=== PATIENT | male | born 1990 | race Caucasian/White ===

== ENCOUNTER → 2019-08-05 | Outpatient (CLI) | payer BC ==
[~2019-08-05] MED LIST: INSULIN PUMP NOVOLOG; LVT.05T PO
--- NOTE | 2019-08-05 09:26 | Diagnostic Imaging Report ---
PROCEDURE: US Scrotum. TECHNIQUE: Multiple real-time grayscale images were obtained over the scrotum in various projections bilaterally. INDICATION: Left testicular mass. Right testicle measures 4.3 x 2.0 x 2.6 cm and the left testicle measures 4.1 x 2.2 x 2.9 cm. Both testes demonstrate homogeneous echotexture. No discrete testicular mass is identified. There is blood flow to both testes. Epididymides are unremarkable. No hydrocele is detected. There is no varicocele. IMPRESSION: Unremarkable scrotal ultrasound. No testicular mass or vascular compromise is detected. Dictated by: Dictated on workstation # [id number]
== END ==
LOC: RAD 08:26
PROVIDERS: ATTEND Internal Medicine
DX: N50.9 Disorder of male genital organs, unspecified (principal)
CPT/HCPCS: 76870

== ENCOUNTER → 2019-08-19 | Outpatient (CLI) | payer BC ==
--- NOTE | 2019-08-19 12:15 | Diagnostic Imaging Report ---
PROCEDURE: US Thyroid. TECHNIQUE: Multiple real-time grayscale images were obtained of the thyroid in various projections. INDICATION: Enlarged thyroid gland. COMPARISON: None available FINDINGS: The right lobe of thyroid gland measures 4.9 x 1.3 x 1.4 cm. It maintains a homogeneous echotexture without discrete nodule. The left lobe of thyroid gland measures 4.4 x 1.6 x 1.0 cm. It maintains a homogeneous echotexture without discrete nodule. Isthmus is unremarkable. IMPRESSION: Unremarkable examination. Dictated by: Dictated on workstation # [id number]
== END ==
LOC: RAD 11:06
PROVIDERS: ATTEND Internal Medicine
DX: E04.9 Nontoxic goiter, unspecified (principal)
CPT/HCPCS: 76536

== ENCOUNTER 2020-04-14 09:07 | Emergency (ER) | payer BC ==
[~2020-04-14] VITALS: Ht 180 cm; Wt 81.0 kg
[2020-04-14] MEDS ORDERED: LACTATED RINGERS 1,000 ML IV ONE ×2 (09:38→10:31)
[2020-04-14] MEDS ORDERED: ACETAMINOPHEN 500 MG TAB (TYLENOL) PO PRN (09:45)
[2020-04-14 09:55] LABS: BASOPHILS % (AUTO) 1 % (0-10); EOSINOPHILS # (AUTO) 0.1 10^3/uL (0.0-0.3); EOSINOPHILS % (AUTO) 2 % (0-10); HEMATOCRIT 45 % (40-54); HEMOGLOBIN 15.1 g/dL (13.3-17.7); LYMPHOCYTES # (AUTO) 0.6 10^3/uL (1.0-4.0); LYMPHOCYTES % (AUTO) 8 % (12-44); MEAN CORPUSCULAR HEMOGLOBIN 29 pg (25-34); MEAN CORPUSCULAR HGB CONC 33 g/dL (32-36); MEAN CORPUSCULAR VOLUME 88 fL (80-99); MEAN PLATELET VOLUME 11.1 fL (9.0-12.2); MONOCYTES # (AUTO) 0.9 10^3/uL (0.0-1.0); MONOCYTES % (AUTO) 13 % (0-12); NEUTROPHILS # (AUTO) 5.1 10^3/uL (1.8-7.8); NEUTROPHILS % (AUTO) 76 % (42-75); PLATELET COUNT 141 10^3/uL (130-400); WHITE BLOOD COUNT 6.7 10^3/uL (4.3-11.0)
[2020-04-14 09:59] LABS: ALBUMIN 4.4 GM/DL (3.2-4.5); CHLORIDE 96 MMOL/L (98-107); POTASSIUM 4.9 MMOL/L (3.6-5.0); SODIUM 132 MMOL/L (135-145)
[2020-04-14 10:02] LABS: TOTAL PROTEIN 7.5 GM/DL (6.4-8.2)
[2020-04-14 10:03] LABS: BILIRUBIN,TOTAL 0.6 MG/DL (0.1-1.0); CARBON DIOXIDE 21 MMOL/L (21-32)
[2020-04-14 10:05] LABS: ALKALINE PHOSPHATASE 65 U/L (40-136)
[2020-04-14 10:06] LABS: BUN/CREATININE RATIO 10
[2020-04-14 10:08] LABS: ALANINE AMINOTRANSFERASE 13 U/L (0-55)
[2020-04-14 10:12] LABS: GFR ESTIMATED > 60
[2020-04-14 10:13] LABS: GLUCOSE 456 MG/DL (70-105)
[2020-04-14 10:14] LABS: FIBRIN DEGRADATION PRODUCTS < 0.27 UG/ML (0.00-0.49); PARTIAL THROMBOPLASTIN TIME 28 SEC (24-35); PROTHROMBIN TIME PATIENT 13.1 SEC (12.2-14.7)
--- NOTE | 2020-04-14 10:30 | Diagnostic Imaging Report ---
PATIENT HISTORY: sepsis. TECHNIQUE: Single frontal view of the chest. COMPARISON: None FINDINGS: The lung volumes are normal. No focal consolidation is seen. No large pleural effusion or pneumothorax is seen. The cardiomediastinal silhouette is normal in size and contour. No acute osseous abnormality is seen. IMPRESSION: No acute pulmonary abnormality seen. Dictated by: Dictated on workstation # [id number]
[2020-04-14] MEDS ORDERED: inSUlin (REGULAR) HUMAN 1 UNIT/0.01 ML (CHARGE PER UNIT) IV STA (10:31)
--- NOTE | 2020-04-14 11:13 | ED General ---
General Chief Complaint: Fever-Adult/Adol Stated Complaint: FEVER,SOA,LOSS OF TASTE Nursing Triage Note: ARRIVED VIA AMB TO ROOM 09 WITH COMPLAINTS OF FEVER, MUSCLE ACHES, NO TASTE AND FATIGUE STARTING ON SAT. STATES HE WAS EXPOSED LAST THRUSDAY BY HIS BOSS AND WAS TESTED THEN PER [employer] POLICY. PT IS A DIABETIC AND STATES HE IS WEARING A PUMP. STATES BLOOD SUGARS HAVE BEEN HIGH. Nursing Sepsis Screen: Possible Severe Sepsis Risk Source of Information: Patient Exam Limitations: No Limitations History of Present Illness Date Seen by Provider: Apr 14, 2020 Time Seen by Provider: 09:38 Initial Comments Here with report of loss of taste and overall not feeling well. Also has fevers. Patient is a known diabetic. Did have exposure and test approximately a week ago. The test was negative. Shortly thereafter he started having symptoms and that has progressed to fever today. Notes that his blood sugars have been in the 400s the last couple of days. He does have insulin pump and does do bolus dose based on blood sugars. Despite that his blood sugars have stayed elevated. He still is able to drink and is not vomiting. Main concern today was that he developed fever and has lost taste. He is worried that he has COVID-19. He is also worried about unregulated blood sugar. Timing/Duration: 1 Week, Getting Worse Severity: Moderate Associated Systoms: Cough, Fever/Chills; No Nausea/Vomiting, No Shortness of Air, No Weakness Allergies and Home Medications Allergies Coded Allergies: Penicillins (Verified Adverse Reaction, Mild, 09/25/12) azithromycin (Verified Adverse Reaction, Mild, 09/25/12) codeine (Verified Adverse Reaction, Mild, 09/25/12) Home Medications Levothyroxine Sodium 50 Mcg Tablet, 1 EACH PO DAILY, (Reported) Patient Home Medication List Home Medication List Reviewed: Yes Review of Systems Review of Systems Constitutional: No chills; fever EENTM: see HPI; No nose congestion, No throat pain Respiratory: cough; No short of breath Cardiovascular: no symptoms reported Gastrointestinal: No abdominal pain, No nausea, No vomiting Genitourinary: No dysuria, No pain Musculoskeletal: joint pain, muscle pain Skin: No change in color, No lesions Psychiatric/Neurological: Denies Headache, Denies Weakness All Other Systems Reviewed Negative Unless Noted: Yes Past Vqfidym-Voceef-Tmtqtm Hx Past Med/Social Hx: Reviewed Nursing Past Med/Soc Hx Patient Social History Alcohol Use: Occasionally Uses Recreational Drug Use: No Recent Foreign Travel: No Contact w/Someone Who Travel: No Recent Infectious Disease Expo: No Immunizations Up To Date Tetanus Booster (TDap): Unknown Date of Pneumonia Vaccine: September 28, 2012 Seasonal Allergies Seasonal Allergies: No Past Medical History Surgeries: No Respiratory: No Cardiac: No Neurological: No Reproductive Disorders: No Genitourinary: No Gastrointestinal: No Musculoskeletal: No Endocrine: Yes (DX DM 2004; DX hypothyroid 2005) Diabetes, Insulin dep, Hypothyroidsim Cancer: No Psychosocial: No Integumentary: No Blood Disorders: No Adverse Reaction/Blood Tranf: No Family Medical History Reviewed Nursing Family Hx No Pertinent Family Hx Physical Exam-Suspected Sepsis Physical Exam Vital Signs Vital Signs - First Documented 04/14/20 09:20 Temp 38.6 Pulse 132 Resp 16 B/P (MAP) 131/80 (97) Pulse Ox 96 O2 Delivery Room Air Capillary Refill : Less Than 3 Seconds Blood Pressure Mean: 97 Height, Weight, BMI Height: 6'0.00" Weight: 175lbs. 5.0oz. [id number]; 25.00 BMI Method:Stated General Appearance: No Apparent Distress, WD/WN HEENT: PERRL/EOMI, Pharynx Normal Neck: Non Tender, Supple Respiratory: Lungs Clear, Normal Breath Sounds Cardiovascular: No Murmur, Tachycardia Gastrointestinal: Non Tender, Soft Back: Normal Inspection, No CVA Tenderness, No Vertebral Tenderness Extremity: Normal Range of Motion, Non Tender Neurologic/Psychiatric: Alert, Oriented x3 Skin: normal color, warm/dry Focused Exam Lactate Level 04/14/20 09:30: Lactic Acid Level 1.30 Lactic Acid Level Laboratory Tests Test 04/14/20 09:30 Lactic Acid Level 1.30 MMOL/L (0.50-2.00) Progress/Results/Core Measures Suspected Sepsis Recent Fever Within 48 Hours: Yes Infection Criteria Present: Suspected New Infection New/Unexplained Altered Menta: No Sepsis Screen: Possible Severe Sepsis Risk SIRS Temperature: Pulse: 132 Respiratory Rate: 16 Laboratory Tests 04/14/20 09:30: White Blood Count 6.7 Blood Pressure 131 /80 Mean: 97 04/14/20 09:30: Lactic Acid Level 1.30 Laboratory Tests 04/14/20 09:30: Creatinine 1.30, INR Comment 1.0, Platelet Count 141, Total Bilirubin 0.6 Results/Orders Lab Results Laboratory Tests Test 04/14/20 09:30 04/14/20 12:23 Range/Units White Blood Count 6.7 4.3-11.0 10^3/uL Red Blood Count 5.18 4.30-5.52 10^6/uL Hemoglobin 15.1 13.3-17.7 g/dL Hematocrit 45 40-54 % Mean Corpuscular Volume 88 80-99 fL Mean Corpuscular Hemoglobin 29 25-34 pg Mean Corpuscular Hemoglobin Concent 33 32-36 g/dL Red Cell Distribution Width 11.3 10.0-14.5 % Platelet Count 141 130-400 10^3/uL Mean Platelet Volume 11.1 9.0-12.2 fL Immature Granulocyte % (Auto) 0 % Neutrophils (%) (Auto) 76 H 42-75 % Lymphocytes (%) (Auto) 8 L 12-44 % Monocytes (%) (Auto) 13 H 0-12 % Eosinophils (%) (Auto) 2 0-10 % Basophils (%) (Auto) 1 0-10 % Neutrophils # (Auto) 5.1 1.8-7.8 10^3/uL Lymphocytes # (Auto) 0.6 L 1.0-4.0 10^3/uL Monocytes # (Auto) 0.9 0.0-1.0 10^3/uL Eosinophils # (Auto) 0.1 0.0-0.3 10^3/uL Basophils # (Auto) 0.0 0.0-0.1 10^3/uL Immature Granulocyte # (Auto) 0.0 0.0-0.1 10^3/uL Prothrombin Time 13.1 12.2-14.7 SEC INR Comment 1.0 0.8-1.4 Activated Partial Thromboplast Time 28 24-35 SEC D-Dimer < 0.27 0.00-0.49 UG/ML Sodium Level 132 L 135-145 MMOL/L Potassium Level 4.9 3.6-5.0 MMOL/L Chloride Level 96 L 98-107 MMOL/L Carbon Dioxide Level 21 21-32 MMOL/L Anion Gap 15 H 5-14 MMOL/L Blood Urea Nitrogen 13 7-18 MG/DL Creatinine 1.30 0.60-1.30 MG/DL Estimat Glomerular Filtration Rate > 60 BUN/Creatinine Ratio 10 Glucose Level 456 *H 70-105 MG/DL Lactic Acid Level 1.30 0.50-2.00 MMOL/L Calcium Level 9.0 8.5-10.1 MG/DL Corrected Calcium 8.7 8.5-10.1 MG/DL Total Bilirubin 0.6 0.1-1.0 MG/DL Aspartate Amino Transf (AST/SGOT) 12 5-34 U/L Alanine Aminotransferase (ALT/SGPT) 13 0-55 U/L Alkaline Phosphatase 65 40-136 U/L C-Reactive Protein High Sensitivity 0.28 0.00-0.50 MG/DL Total Protein 7.5 6.4-8.2 GM/DL Albumin 4.4 3.2-4.5 GM/DL Procalcitonin 0.09 <0.10 NG/ML Coronavirus 2019 (BHUPENDRA) Positive H Negative Urine Color YELLOW Urine Clarity CLEAR Urine pH 6.0 5-9 Urine Specific [place] 1.010 L 1.016-1.022 Urine Protein NEGATIVE NEGATIVE Urine Glucose (UA) 3+ H NEGATIVE Urine Ketones 2+ H NEGATIVE Urine Nitrite NEGATIVE NEGATIVE Urine Bilirubin NEGATIVE NEGATIVE Urine Urobilinogen 0.2 < = 1.0 MG/DL Urine Leukocyte Esterase NEGATIVE NEGATIVE Urine RBC (Auto) NEGATIVE NEGATIVE Urine RBC RARE /HPF Urine WBC RARE /HPF Urine Crystals NONE /LPF Urine Bacteria NEGATIVE /HPF Urine Casts NONE /LPF Urine Mucus NEGATIVE /LPF Urine Culture Indicated NO My Orders Orders - MERARI DAWN MD Cbc With Automated Diff (04/14/20 09:35) Comprehensive Metabolic Panel (04/14/20 09:35) Blood Culture (04/14/20 09:35) Sputum Culture (04/14/20:35) Urinalysis (04/14/20 09:35) Urine Culture (04/14/20 09:35) Protime With Inr (04/14/20 09:35) Partial Thromboplastin Time (04/14/20 09:35) Chest 1 View, Ap/Pa Only (04/14/20 09:35) Acetaminophen Tablet (Tylenol Tablet) (04/14/20 09:45) Ed Iv/Invasive Line Start (04/14/20 09:35) Vital Signs Adult Sepsis Patie Q15M (04/14/20 09:35) O2 (04/14/20 09:35) Remove Rings In Anticipation O (04/14/20 09:35) Lactic Acid Analyzer (04/14/20 09:35) Fibrin Degradation Products (04/14/20 09:35) Procalcitonin (Pct) (04/14/20 09:35) Hs C Reactive Protein (04/14/20 09:35) Covid 19 Inhouse Test (04/14/20 09:35) Lactated Ringers (Lr 1000 Ml Iv Solution (04/14/20 09:38) Lactated Ringers (Lr 1000 Ml Iv Solution (04/14/20 10:31) Insulin (Regular) Human (Novolin R (Per (04/14/20 10:31) Medications Given in ED Current Medications Medications Dose Ordered Sig/Stefan Route Start Time Stop Time Status Last Admin Dose Admin Acetaminophen 1,000 mg ONCE PRN PO 04/14/20 09:45 04/14/20 09:46 DC 04/14/20 09:46 1,000 MG Lactated Ringer's 1,000 ml @ 0 mls/hr Q0M ONCE IV 04/14/20 09:38 04/14/20 09:39 DC 04/14/20 09:46 1,000 MLS/HR Lactated Ringer's 1,000 ml @ 0 mls/hr Q0M ONCE IV 04/14/20 10:31 04/14/20 10:34 DC 04/14/20 11:08 1,000 MLS/HR Vital Signs/I&O 04/14/20 09:20 Temp 38.6 Pulse 132 Resp 16 B/P (MAP) 131/80 (97) Pulse Ox 96 O2 Delivery Room Air Capillary Refill : Less Than 3 Seconds Blood Pressure Mean: 97 Progress Note : Progress Note Seen and evaluated. Sepsis protocol initiated as well as rapid COVID-19 and influenza evaluation. LR 1 L bolus. Insulin 10 units IV. Monitor patient. 1010: Repeat LR 1 L bolus ordered. Monitor patient. 1315: UA does show 2+ ketones. Patient received second liter of LR. Blood sugar in the 170s. He is overall feeling much better and does not want to stay in the hospital. He states that he manages his diabetes quite well at home and feels comfortable with this and would prefer to be at home if possible. I think this is reasonable given his current assessment. We did discuss at length reguarding Covid 19 and diabetes. He will closely monitor his blood sugars as well as drink plenty of fluids and continue the other typical supportive therapy at home. Patient knows to return especially if O2 saturations begin to decline. Discharged home with return precautions. Patient verbalized understanding of instructions and agreement with plan. Patient was offered admission and he declines. Diagnostic Imaging Diagonstic Imaging: Xray Plain Films/CT/US/NM/MRI: chest Comments [facility] [place], [place] NAME: JOHN DIOR [facility] REC#: [id number] PT STATUS: REG ER : 1990 PHYSICIAN: MERARI DAWN MD ADMIT DATE: 04/14/20/ER Signed Date of Exam:04/14/20 CHEST 1 VIEW, AP/PA ONLY PATIENT HISTORY: sepsis. TECHNIQUE: Single frontal view of the chest. COMPARISON: None FINDINGS: The lung volumes are normal. No focal consolidation is seen. No large pleural effusion or pneumothorax is seen. The cardiomediastinal silhouette is normal in size and contour. No acute osseous abnormality is seen. IMPRESSION: No acute pulmonary abnormality seen. Dictated by: Dictated on workstation # [id number] Dict: 04/14/20 1028 Trans: 04/14/20 1036 [facility] [id number] Interpreted by: ANN-MARIE MOSS MD Electronically signed by: ANN-MARIE MOSS MD 04/14/20 1036 Departure Impression Primary Impression: COVID-19 virus infection Disposition: 01 HOME, SELF-CARE Condition: Improved Departure-Patient Inst. Decision time for Depature: 13:19 Referrals: MACK YANG MD (PCP/Family) Primary Care Physician Patient Instructions: Coronavirus Disease 2019 (COVID-19) Overview Add. Discharge Instructions: All discharge instructions reviewed with patient and/or family. Voiced understanding. Drink plenty of fluids and get plenty of rest. Your COVID-19 test was positive. You will need to remain in isolation for at least 10 days with day 0 04/08/20 and you will count for 10 days from there. You must be symptom improving and fever free in the last 3 days without fever reducing medicines to be out of isolation after the 10th day. The health department should contact you to direct timeframe as well. You need to notify your close contacts so that they may quarantine and this will include anybody that you are around for 10 minutes within 6 feet 2 days prior to onset of symptoms. Monitor your oxygen saturation while resting. Currently it is 97 percent. If that starts to decline to the low 90s and certainly below 90, please return immediately to the emergency department for further evaluation. You may take ibuprofen 600 mg every 8 hours as needed for fever or pain. You may take Tylenol/acetaminophen 1000 mg every 8 hours as needed for fever or pain. Return for worse pain, fever, vomiting, weakness, breathing problems or other concerns as needed. Copy Copies To 1: MACK YANG MD, TIMOTHY D MD Apr 14, 2020 11:12
--- NOTE | 2020-04-14 12:43 | NUR ---
LAB CONTACTED DUE TO URINE NOT BEING RAN YET. THEY STATE THEY HAVE IT.
[2020-04-14 12:47] LABS: BILIRUBIN,URINE NEGATIVE (NEGATIVE); CLARITY,URINE CLEAR; COLOR,URINE YELLOW; GLUCOSE, URINE (UA) 3+ (NEGATIVE); KETONES,URINE 2+ (NEGATIVE); LEUKOCYTE ESTERASE ,URINE NEGATIVE (NEGATIVE); NITRITE,URINE NEGATIVE (NEGATIVE); PROTEIN,URINE NEGATIVE (NEGATIVE)
[2020-04-14 13:01] LABS: BACTERIA,URINE NEGATIVE /HPF; RBC,URINE RARE /HPF; WBC,URINE RARE /HPF
[2020-04-14 13:25] VITALS: BP 123/74
== END 2020-04-14 13:25 | disposition home or self-care (01) ==
LOC: EDUNIT# 09:07 → ER 09:08
DX: U07.1 COVID-19 (principal); E03.9 Hypothyroidism, unspecified; E11.9 Type 2 diabetes mellitus without complications; Z88.0 Allergy status to penicillin; Z88.1 Allergy status to other antibiotic agents; Z88.5 Allergy status to narcotic agent; Z96.41 Presence of insulin pump (external) (internal)
CPT/HCPCS: 71045; 80053; 81000; 83605; 84145; 85025; 85379; 85610; 85730; 86141; 87040; 87088; 99284; U0002; 36415; 87635

== ENCOUNTER 2021-02-15 03:41 | Inpatient (IN) | payer BC ==
[~2021-02-15] VITALS: Ht 180 cm; Wt 81.6 kg
[2021-02-15 04:08] LABS: BASOPHILS # (AUTO) 0.1 10^3/uL (0.0-0.1); BASOPHILS % (AUTO) 0 % (0-10); EOSINOPHILS # (AUTO) 0.1 10^3/uL (0.0-0.3); EOSINOPHILS % (AUTO) 0 % (0-10); HEMATOCRIT 50 % (40-54); HEMOGLOBIN 16.4 g/dL (13.3-17.7); LYMPHOCYTES # (AUTO) 0.8 10^3/uL (1.0-4.0); LYMPHOCYTES % (AUTO) 5 % (12-44); MEAN CORPUSCULAR HEMOGLOBIN 30 pg (25-34); MEAN CORPUSCULAR HGB CONC 33 g/dL (32-36); MEAN CORPUSCULAR VOLUME 91 fL (80-99); MEAN PLATELET VOLUME 10.8 fL (9.0-12.2); MONOCYTES # (AUTO) 0.7 10^3/uL (0.0-1.0); MONOCYTES % (AUTO) 4 % (0-12); NEUTROPHILS # (AUTO) 14.5 10^3/uL (1.8-7.8); NEUTROPHILS % (AUTO) 89 % (42-75); PLATELET COUNT 185 10^3/uL (130-400); WHITE BLOOD COUNT 16.3 10^3/uL (4.3-11.0)
--- NOTE | 2021-02-15 04:08 | ED General ---
General Stated Complaint: TYPE 1 DIABETIC,BLOOD SUGAR 463 Source of Information: Patient Exam Limitations: No Limitations History of Present Illness Date Seen by Provider: Feb 15, 2021 Time Seen by Provider: 03:55 Initial Comments Patient is a 30-year-old male who is a type I diabetic who presents to the emergency department today with a chief complaint of elevated blood sugar and nausea. Lightheaded. Patient states that he has an insulin pump and he states ever since he got his new insulin pump tubing recently he has had problems with administration of his insulin. Patient states he pulled out the tubing tonight and it was bent. He states he is continued to feel sick all night long. He was able to eat dinner earlier in the evening but is nauseous now. Denies any recent fevers, chills, cough or congestion. No sore throat, runny nose or earache. No abdominal pain, diarrhea. No problems with urination. No joint pains, rashes or swelling. He is Covid vaccinated. No alcohol tonight All other review of systems reviewed and negative except as stated. Timing/Duration: 1-2 Days Severity: Moderate Associated Systoms: Nausea/Vomiting Allergies and Home Medications Allergies Coded Allergies: Penicillins (Verified Adverse Reaction, Mild, 09/25/12) azithromycin (Verified Adverse Reaction, Mild, 09/25/12) codeine (Verified Adverse Reaction, Mild, 09/25/12) Patient Home Medication List Home Medication List Reviewed: Yes Levothyroxine Sodium (Levothyroxine 50 Mcg Tab) 50 Mcg Tablet, 1 EACH PO DAILY, (Reported) Entered as Reported by: DANIELA RIZZO on 09/25/12 1110 [insulin pump novolog] , (Reported) Entered as Reported by: REYES KNOX on 09/26/12 0350 Review of Systems Review of Systems Constitutional: see HPI EENTM: no symptoms reported Respiratory: no symptoms reported Cardiovascular: no symptoms reported Gastrointestinal: nausea Genitourinary: no symptoms reported Musculoskeletal: no symptoms reported Skin: no symptoms reported All Other Systems Reviewed Negative Unless Noted: Yes Past Irczppt-Waslhr-Ejjudt Hx Immunizations Up To Date Tetanus Booster (TDap): Unknown Seasonal Allergies Seasonal Allergies: No Past Medical History Surgeries: No Respiratory: No Cardiac: No Neurological: No Reproductive Disorders: No Genitourinary: No Gastrointestinal: No Musculoskeletal: No Endocrine: Yes (DX DM 2004; DX hypothyroid 2005) Diabetes, Insulin dep, Hypothyroidsim Cancer: No Psychosocial: No Integumentary: No Blood Disorders: No Adverse Reaction/Blood Tranf: No Family Medical History No Pertinent Family Hx Physical Exam Vital Signs Vital Signs - First Documented 02/15/21 03:53 Temp 36.1 Pulse 98 Resp 20 B/P (MAP) 111/60 (77) Pulse Ox 99 O2 Delivery Room Air Capillary Refill : Height, Weight, BMI Height: 6'0.00" Weight: 175lbs. 5.0oz. [id number]; 25.00 BMI Method:Stated General Appearance: No Apparent Distress, WD/WN Eyes: Bilateral Eye Normal Inspection HEENT: PERRL/EOMI, Normal ENT Inspection, Other (slightly dry oral mucosa) Neck: Normal Inspection Respiratory: Lungs Clear, Normal Breath Sounds, No Accessory Muscle Use, No Respiratory Distress Cardiovascular: Regular Rate, Rhythm, Normal Peripheral Pulses, Tachycardia Gastrointestinal: Normal Bowel Sounds, Non Tender, Soft Extremity: Normal Inspection, Normal Range of Motion Neurologic/Psychiatric: Alert, Oriented x3, No Motor/Sensory Deficits, Normal Mood/Affect, sales support rep II-XII Norm as Tested Skin: Normal Color, Warm/Dry Progress/Results/Core Measures Suspected Sepsis Recent Fever Within 48 Hours: No SIRS Temperature: Pulse: Respiratory Rate: Laboratory Tests 02/15/21 04:05: White Blood Count 16.3H Blood Pressure / Mean: Laboratory Tests 02/15/21 04:05: Creatinine 1.57H, Platelet Count 185, Total Bilirubin 1.0 Results/Orders Lab Results Laboratory Tests Test 02/15/21 03:58 02/15/21 04:05 02/15/21 04:40 Range/Units Glucometer 423 *H 70-110 MG/DL White Blood Count 16.3 H 4.3-11.0 10^3/uL Red Blood Count 5.50 4.30-5.52 10^6/uL Hemoglobin 16.4 13.3-17.7 g/dL Hematocrit 50 40-54 % Mean Corpuscular Volume 91 80-99 fL Mean Corpuscular Hemoglobin 30 25-34 pg Mean Corpuscular Hemoglobin Concent 33 32-36 g/dL Red Cell Distribution Width 11.4 10.0-14.5 % Platelet Count 185 130-400 10^3/uL Mean Platelet Volume 10.8 9.0-12.2 fL Immature Granulocyte % (Auto) 1 % Neutrophils (%) (Auto) 89 H 42-75 % Lymphocytes (%) (Auto) 5 L 12-44 % Monocytes (%) (Auto) 4 0-12 % Eosinophils (%) (Auto) 0 0-10 % Basophils (%) (Auto) 0 0-10 % Neutrophils # (Auto) 14.5 H 1.8-7.8 10^3/uL Lymphocytes # (Auto) 0.8 L 1.0-4.0 10^3/uL Monocytes # (Auto) 0.7 0.0-1.0 10^3/uL Eosinophils # (Auto) 0.1 0.0-0.3 10^3/uL Basophils # (Auto) 0.1 0.0-0.1 10^3/uL Immature Granulocyte # (Auto) 0.1 0.0-0.1 10^3/uL Neutrophils % (Manual) 81 % Lymphocytes % (Manual) 9 % Monocytes % (Manual) 7 % Band Neutrophils 3 % Blood Morphology Comment NORMAL Urine Color YELLOW Urine Clarity CLEAR Urine pH 5.5 5-9 Urine Specific [place] 1.015 L 1.016-1.022 Urine Protein 2+ H NEGATIVE Urine Glucose (UA) 3+ H NEGATIVE Urine Ketones 3+ H NEGATIVE Urine Nitrite NEGATIVE NEGATIVE Urine Bilirubin NEGATIVE NEGATIVE Urine Urobilinogen 0.2 < = 1.0 MG/DL Urine Leukocyte Esterase NEGATIVE NEGATIVE Urine RBC (Auto) TRACE-I NEGATIVE Urine RBC RARE /HPF Urine WBC NONE /HPF Urine Squamous Epithelial Cells 0-2 /HPF Urine Crystals NONE /LPF Urine Bacteria NEGATIVE /HPF Urine Casts NONE /LPF Urine Mucus SMALL H /LPF Urine Culture Indicated NO Sodium Level 134 L 135-145 MMOL/L Potassium Level 5.3 H 3.6-5.0 MMOL/L Chloride Level 94 L 98-107 MMOL/L Carbon Dioxide Level 15 L 21-32 MMOL/L Anion Gap 25 H 5-14 MMOL/L Blood Urea Nitrogen 22 H 7-18 MG/DL Creatinine 1.57 H 0.60-1.30 MG/DL Estimat Glomerular Filtration Rate 52 BUN/Creatinine Ratio 14 Glucose Level 558 *H 70-105 MG/DL Calcium Level 10.3 H 8.5-10.1 MG/DL Corrected Calcium 10.0 8.5-10.1 MG/DL Total Bilirubin 1.0 0.1-1.0 MG/DL Aspartate Amino Transf (AST/SGOT) 12 5-34 U/L Alanine Aminotransferase (ALT/SGPT) 15 0-55 U/L Alkaline Phosphatase 67 40-136 U/L Total Protein 7.4 6.4-8.2 GM/DL Albumin 4.4 3.2-4.5 GM/DL Lipase 18 8-78 U/L Beta-Hydroxybutyrate (Chem panel) 8.56 H 0.00-0.27 MMOL/L Blood Gas Puncture Site RIGHT RADIAL Blood Gas Patient Temperature 36.1 Arterial Blood pH 7.30 *L 7.37-7.43 Arterial Blood Partial Pressure CO2 32 L 35-45 MMHG Arterial Blood Partial Pressure O2 115 H 79-93 MMHG Arterial Blood HCO3 15 *L 23-27 MMOL/L Arterial Blood Total CO2 16.1 L 21.0-31.0 MMOL/L Arterial Blood Oxygen Saturation 98 94-100 % Arterial Blood Base Excess -10.3 L -2.5-2.5 MMOL/L Misael Test YES-POS Blood Gas Ventilator Setting NO Blood Gas Inspired Oxygen ROOM AIR My Orders Orders - WANG ELI MD Ed Iv/Invasive Line Start (02/15/21 04:02) Cbc With Automated Diff (02/15/21 04:02) Comprehensive Metabolic Panel (02/15/21 04:02) Lipase (02/15/21 04:02) Urinalysis (02/15/21 04:02) Arterial Blood Gas (02/15/21 04:02) Beta Hydroxybutyrate (02/15/21 04:02) Ns Iv 1000 Ml (Sodium Chloride 0.9%) (02/15/21 04:15) Ondansetron Injection (Zofran Injectio (02/15/21 04:15) Manual Differential (02/15/21 04:05) Ns Iv 1000 Ml (Sodium Chloride 0.9%) (02/15/21 04:30) Insulin Regular Drip (Myxredlin 100 Unit (02/15/21 05:00) Insulin (Regular) Human (Novolin R (Per (02/15/21 06:00) 1/2 Ns Iv Solution (0.45% Sodium Chlorid (02/15/21 05:15) Accucheck Stat ONCE (02/15/21 05:28) Accucheck Stat ONCE (02/15/21 05:28) Medications Given in ED Current Medications Medications Dose Ordered Sig/Stefan Route Start Time Stop Time Status Last Admin Dose Admin Ondansetron HCl 8 mg ONCE ONCE IVP 02/15/21 04:15 02/15/21 04:16 DC 02/15/21 04:21 8 MG Vital Signs/I&O 02/15/21 03:53 Temp 36.1 Pulse 98 Resp 20 B/P (MAP) 111/60 (77) Pulse Ox 99 O2 Delivery Room Air Capillary Refill : Progress Note : Time: 05:07 Progress Note Patient re-evaluated, resting comfortably. Nausea is improved. VSS. I asked patient to discontinue his insulin pump. patient ordered 5u bolus IV and started on insulin drip at 5u/hr. orders written. Critical Care Note Critical Care Start Time: 03:55 Stop Time: 04:58 Total Time (minutes) [id number] minutes critical care time in the evaluation and management of this type I diabetic with hyperglycemia/DKA. Time includes initial evaluation and management of the patient with fluid resuscitation, review and interpretation of laboratory findings, review of the medical record, initiation of insulin drip, discussion with admitting provider. Departure Communication (Admissions) Time/Spoke to Admitting Phy: 05:[address] [place] Impression Primary Impression: Diabetic ketoacidosis Qualified Codes: E10.10 - Type 1 diabetes mellitus with ketoacidosis without coma Disposition: ADMITTED INPATIENT Condition: Critical Admissions Decision to Admit Reason: Admit from ER (General) Decision to Admit/Date: Feb 15, 2021 Time/Decision to Admit Time: 05:00 Departure-Patient Inst. Referrals: MACK YANG MD (PCP/Family) Primary Care Physician Copy Copies To 1: MACK YANG MD, KATHRYN M MD Feb 15, 2021 04:08
[2021-02-15 04:15] LABS: BILIRUBIN,URINE NEGATIVE (NEGATIVE); CLARITY,URINE CLEAR; COLOR,URINE YELLOW; GLUCOSE, URINE (UA) 3+ (NEGATIVE); KETONES,URINE 3+ (NEGATIVE); LEUKOCYTE ESTERASE ,URINE NEGATIVE (NEGATIVE); NITRITE,URINE NEGATIVE (NEGATIVE); PH,URINE 5.5 (5-9); PROTEIN,URINE 2+ (NEGATIVE)
[2021-02-15] MEDS ORDERED: ONDANSETRON 4 MG/2 ML (SDV) Z0FRAN IVP ONE (04:15)
[2021-02-15] MEDS ORDERED: NS IV 1000 ML 1,000 ML IV SCH ×2 (04:15→04:30)
[2021-02-15 04:21] LABS: ALBUMIN 4.4 GM/DL (3.2-4.5); POTASSIUM 5.3 MMOL/L (3.6-5.0)
[2021-02-15 04:22] LABS: CALCIUM 10.3 MG/DL (8.5-10.1)
[2021-02-15 04:24] LABS: TOTAL PROTEIN 7.4 GM/DL (6.4-8.2)
[2021-02-15 04:25] LABS: BACTERIA,URINE NEGATIVE /HPF; BAND NEUTROPHILS 3 %; LYMPHOCYTES % (MANUAL) 9 %; MONOCYTES % (MANUAL) 7 %; NEUTROPHILS % (MANUAL) 81 %; RBC MORPH NORMAL; RBC,URINE RARE /HPF; SQUAMOUS EPITHELIAL CELL,UR 0-2 /HPF
[2021-02-15 04:27] LABS: CREATININE SERUM 1.57 MG/DL (0.60-1.30)
[2021-02-15 04:51] LABS: ABG BASE EXCESS -10.3 MMOL/L (-2.5-2.5); ABG OXYGEN SATURATION 98 % (94-100); ABG PCO2 32 MMHG (35-45); ABG PO2 115 MMHG (79-93); ABG TCO2 16.1 MMOL/L (21.0-31.0)
[2021-02-15 04:53] LABS: ALLENS TEST YES-POS; INSPIRED O2 ROOM AIR; PATIENT TEMP 36.1; VENTILATOR NO
[2021-02-15] MEDS ORDERED: 1/2 NS IV SOLUTION 1,000 ML IV SCH ×2 (05:15→08:15)
[2021-02-15] MEDS ORDERED: inSUlin (REGULAR) HUMAN 1 UNIT/0.01 ML (CHARGE PER UNIT) IV SCH (06:00)
[2021-02-15 06:31] LABS: POTASSIUM 4.2 MMOL/L (3.6-5.0)
[2021-02-15 06:37] LABS: CREATININE SERUM 1.32 MG/DL (0.60-1.30)
[2021-02-15 07:42] VITALS: BP 114/97
[2021-02-15] MEDS ORDERED: D5 1/2 NS 1000 ML IV SOLUTION 1,000 ML IV ONE (08:12)
[2021-02-15] MEDS ORDERED: D5 1/2 NS 1000 ML IV SOLUTION 1,000 ML IV SCH (08:15)
[2021-02-15] MEDS ORDERED: ONDANSETRON 4 MG/2 ML (SDV) Z0FRAN IV PRN (08:15)
[2021-02-15] MEDS ORDERED: POTASSIUM CL 10MEQ/50ML IVPB 50 ML IV SCH (08:15)
[2021-02-15] MEDS: POTASSIUM CL 10MEQ/50ML IVPB 50 ML IV SCH (08:40)
--- NOTE | 2021-02-15 14:55 | Discharge Summary ---
Discharge Summary Hospital Course Problems/Dx: (1) Diabetic ketoacidosis Status: Acute Qualifiers: Qualified Codes: E10.10 - Type 1 diabetes mellitus with ketoacidosis without coma (2) Left against medical advice Status: Acute Hospital Course Date of Admission: Feb 15, 2021 at 04:56 Admission Diagnosis : Diabetic ketoacidosis Family Physician/Provider: Mick Constantino MD Date of Discharge: 02/15/21 Discharge Diagnosis: Diabetic ketoacidosis Hospital Course: Tereso Yoon is a 30-year-old male with past medical history of type 1 diabetes mellitus who was admitted with diabetic ketoacidosis. He was started on an insulin drip and IV fluids per the DKA protocol. His blood sugars improved. He remained in diabetic ketoacidosis. He was advised to stay overnight to continue to get fluids and insulin to resolve his ketoacidosis, but he refused and said that he had things to do. He ultimately left AGAINST MEDICAL ADVICE. Labs and Pending Lab Test: Laboratory Tests 02/15/21 03:58: Glucometer 423*H 02/15/21 04:05: White Blood Count 16.3H, Red Blood Count 5.50, Hemoglobin 16.4, Hematocrit 50, Mean Corpuscular Volume 91, Mean Corpuscular Hemoglobin 30, Mean Corpuscular Hemoglobin Concent 33, Red Cell Distribution Width 11.4, Platelet Count 185, Mean Platelet Volume 10.8, Immature Granulocyte % (Auto) 1, Neutrophils (%) (Auto) 89H, Lymphocytes (%) (Auto) 5L, Monocytes (%) (Auto) 4, Eosinophils (%) (Auto) 0, Basophils (%) (Auto) 0, Neutrophils # (Auto) 14.5H, Lymphocytes # (Auto) 0.8L, Monocytes # (Auto) 0.7, Eosinophils # (Auto) 0.1, Basophils # (Auto) 0.1, Immature Granulocyte # (Auto) 0.1, Neutrophils % (Manual) 81, Lymphocytes % (Manual) 9, Monocytes % (Manual) 7, Band Neutrophils 3, Blood Morphology Comment NORMAL, Urine Color YELLOW, Urine Clarity CLEAR, Urine pH 5.5, Urine Specific [place] 1.015L, Urine Protein 2+H, Urine Glucose (UA) 3+H, Urine Ketones 3+H, Urine Nitrite NEGATIVE, Urine Bilirubin NEGATIVE, Urine Urobilinogen 0.2, Urine Leukocyte Esterase NEGATIVE, Urine RBC (Auto) TRACE-I, Urine RBC RARE, Urine WBC NONE, Urine Squamous Epithelial Cells 0-2, Urine Crystals NONE, Urine Bacteria NEGATIVE, Urine Casts NONE, Urine Mucus SMALLH, Urine Culture Indicated NO, Sodium Level 134L, Potassium Level 5.3H, Chloride Level 94L, Carbon Dioxide Level 15L, Anion Gap 25H, Blood Urea Nitrogen 22H, Creatinine 1.57H, Estimat Glomerular Filtration Rate 52, BUN/Creatinine Ratio 14, Glucose Level 558*H, Calcium Level 10.3H, Corrected Calcium 10.0, Total Bilirubin 1.0, Aspartate Amino Transf (AST/SGOT) 12, Alanine Aminotransferase (ALT/SGPT) 15, Alkaline Phosphatase 67, Total Protein 7.4, Albumin 4.4, Lipase 18, Beta-Hydroxybutyrate (Chem panel) 8.56H 02/15/21 04:40: Blood Gas Puncture Site RIGHT RADIAL, Blood Gas Patient Temperature 36.1, Arterial Blood pH 7.30*L, Arterial Blood Partial Pressure CO2 32L, Arterial Blood Partial Pressure O2 115H, Arterial Blood HCO3 15*L, Arterial Blood Total CO2 16.1L, Arterial Blood Oxygen Saturation 98, Arterial Blood Base Excess - 10.3L, Misael Test YES-POS, Blood Gas Ventilator Setting NO, Blood Gas Inspired Oxygen ROOM AIR 02/15/21 05:00: Beta-Hydroxybutyrate (Chem panel) 8.66H, Mean Blood Glucose [Pending], Hemoglobin A1c [Pending] 02/15/21 05:18: Glucometer 374H 02/15/21 06:11: Glucometer 386H 02/15/21 06:13: Sodium Level 138, Potassium Level 4.2, Chloride Level 102, Carbon Dioxide Level 13L, Anion Gap 23H, Blood Urea Nitrogen 22H, Creatinine 1.32H, Estimat Glomerular Filtration Rate 64, BUN/Creatinine Ratio 17, Glucose Level 412*H, Calcium Level 9.0 02/15/21 07:24: Glucometer 301H 02/15/21 08:01: Glucometer 247H 02/15/21 09:01: Glucometer 251H Home Meds Active Reported [insulin pump novolog] insulin pump administers 1 unit per 30mgdl; per pt through out the day Levothyroxine 50 Mcg Tab (Levothyroxine Sodium) 50 Mcg Tablet 1 Each PO DAILY Assessment/Pt Instructions Patient left AGAINST MEDICAL ADVICE Discharge Planning: <30 minutes discharge planning Discharge Instructions Discharge Diet: ADA Diet Activity as Tolerated: Yes Discharge Physical Examination Vital Signs Vital Signs Date Time Temp Pulse Resp B/P (MAP) Pulse Ox O2 Delivery O2 Flow Rate FiO2 02/15/21 09:00 103 19 108/62 98 Room Air 02/15/21 07:50 36.8 General Appearance: No Apparent Distress, WD/WN HEENT: PERRL/EOMI, Pharynx Normal Respiratory: Lungs Clear, Normal Breath Sounds, No Respiratory Distress Cardiovascular: Regular Rate, Rhythm, No Edema, No Murmur Gastrointestinal: Normal Bowel Sounds, Non Tender, Soft Extremity: Normal Inspection, Non Tender, No Pedal Edema Skin: Normal Color, Warm/Dry Neurologic/Psychiatric: Alert, Oriented x3, No Motor/Sensory Deficits, Normal Mood/Affect Allergies: Coded Allergies: Penicillins (Verified Adverse Reaction, Mild, 09/25/12) azithromycin (Verified Adverse Reaction, Mild, 09/25/12) codeine (Verified Adverse Reaction, Mild, 09/25/12) Discharge Summary Date of Admission Feb 15, 2021 at 04:56 Date of Discharge Feb 15, 2021 at 10:00 Discharge Date: Feb 15, 2021 Discharge Time: 10:00 Admission Diagnosis Diabetic ketoacidosis Discharge Diagnosis (1) Diabetic ketoacidosis Status: Acute Qualifiers: Qualified Codes: E10.10 - Type 1 diabetes mellitus with ketoacidosis without coma (2) Left against medical advice Status: Acute CRYSTAL WOLF MD Feb 15, 2021 14:55
== END 2021-02-15 10:00 | disposition left against medical advice (07) | DRG 639 ==
LOC: EDUNIT# 03:41 → ER 03:45 → ICU 04:56
PROVIDERS: ADMIT Internal Medicine; ATTEND Internal Medicine
DX: E10.10 Type 1 diabetes mellitus with ketoacidosis without coma (principal); E03.9 Hypothyroidism, unspecified; Z88.0 Allergy status to penicillin; Z88.1 Allergy status to other antibiotic agents; Z88.5 Allergy status to narcotic agent; Z79.4 Long term (current) use of insulin; Z79.890 Hormone replacement therapy; Z96.41 Presence of insulin pump (external) (internal)
CPT/HCPCS: 36415; 80048; 80053; 81000; 82010; 82805; 82947; 83036; 83690; 85007; 85027; 99291